=== PATIENT | female | born 1980 | race Caucasian/White ===

== ENCOUNTER 2020-10-13 17:17 | Emergency (ER) | payer BC ==
[~2020-10-13] VITALS: Ht 160 cm; Wt 52.2 kg
[2020-10-13] MEDS: IV NORMAL SALINE 1000 ML BAG IV ONE (17:41)
[2020-10-13] MEDS ORDERED: TDAP DIPH,PERTUSS,TET VAC/PF 0.5 ML DISP.SYRIN IM ONE (17:41)
[2020-10-13] MEDS: HYDROMORPHONE 1 MG/1 ML DISP.SYRIN IV ONE ×2 (17:43→19:56)
[2020-10-13] MEDS ORDERED: VANCOMYCIN IV 200 ML ONE (17:45)
[2020-10-13] MEDS: ONDANSETRON 4 MG/2 ML VIAL IV ONE (17:45)
[2020-10-13] MEDS ORDERED: HYDROMORPHONE 1 MG/1 ML DISP.SYRIN ONE ×2 (17:45→19:52)
[2020-10-13] MEDS ORDERED: ONDANSETRON 4 MG/2 ML VIAL ONE (17:45)
[2020-10-13] MEDS: TDAP DIPH,PERTUSS,TET VAC/PF 0.5 ML DISP.SYRIN IM ONE (17:49)
[2020-10-13] MEDS: VANCOMYCIN IV 1,000 MG in IV DEXTROSE 5% 250 ML IV ONE (17:55)
[2020-10-13] MEDS: KETOROLAC TROMETHAMINE 30 MG INJ IVP ONE (20:04)
[2020-10-13] MEDS ORDERED: KETOROLAC TROMETHAMINE 30 MG INJ ONE (20:06)
--- NOTE | 2020-10-13 20:10 | NUR ---
Note tazone in EDM - 10/13/20 at 2020 by RICH Patient discharged to home in stable condition. Written and verbal after care instructions given. Patient verbalizes understanding of instructions. Stressed follow up or return to ER for worsening s/s. Pt. instructed to follow up with Dr. Nj in AM. Pt. stable, vss. All belongings taken with pt.
--- NOTE | 2020-10-13 20:21 | NUR ---
Patient discharged to home in stable condition. Written and verbal after care instructions given. Patient verbalizes understanding of instructions. Stressed follow up or return to ER for worsening s/s. Pt. instructed to follow up with Dr. Nj in AM. Pt. stable, vss. All belongings taken with pt. Pt. instructed not to drive. Pt. is being driven home by boyfriend.
[2020-10-13 20:30] VITALS: BP 123/78
== END 2020-10-13 20:33 | disposition home or self-care (01) ==
LOC: ER 17:19
DX: L03.032 Cellulitis of left toe (principal); Z88.0 Allergy status to penicillin
CPT/HCPCS: 73660; 90471; 90715; 96365; 96375; 96376; 99284; J1170 ×2; J1885; J2405; J3370; A4663; J7030

== ENCOUNTER 2020-10-14 09:48 | Emergency (ER) | payer BC ==
[~2020-10-14] VITALS: Ht 160 cm; Wt 54.4 kg
[2020-10-14] MEDS ORDERED: VANCOMYCIN IV 200 ML ONE (10:13)
[2020-10-14] MEDS: IV NORMAL SALINE 1000 ML BAG IV ONE (10:31)
[2020-10-14] MEDS: VANCOMYCIN IV 1,000 MG in IV DEXTROSE 5% 250 ML IV ONE (10:32)
[2020-10-14] MEDS: ONDANSETRON 4 MG/2 ML VIAL IV ONE (10:32)
[2020-10-14] MEDS ORDERED: HYDROMORPHONE 1 MG/1 ML DISP.SYRIN ONE ×2 (10:33→11:18)
[2020-10-14] MEDS: HYDROMORPHONE 1 MG/1 ML DISP.SYRIN IV ONE ×2 (10:33→11:15)
[2020-10-14] MEDS ORDERED: ONDANSETRON 4 MG/2 ML VIAL ONE (10:33)
[2020-10-15] MEDS ORDERED: SULF1TAB47 PO (12:35)
== END 2020-10-14 12:35 | disposition home or self-care (01) ==
LOC: ER 09:48
DX: L03.032 Cellulitis of left toe (principal); Z88.0 Allergy status to penicillin
CPT/HCPCS: 96365; 96375; 96376; 99284; J1170 ×2; J2405; J3370; A4663

== ENCOUNTER 2020-10-15 01:26 | Emergency (ER) | payer BC ==
[~2020-10-15] VITALS: Ht 160 cm; Wt 54.4 kg
--- NOTE | 2020-10-15 02:00 | NUR ---
Dr. Russ at bedside for MSE.
[2020-10-15] MEDS ORDERED: CEFTRIAXONE 1 G in IV DEXTROSE 5% 50 ML IV ONE (02:15)
[2020-10-15] MEDS ORDERED: CLINDAMYCIN PHOSPHATE IV 600 MG in IV DEXTROSE 5% 100 ML IV ONE (02:15)
[2020-10-15] MEDS ORDERED: CEFTRIAXONE /D5W 50ML IVPB **ER PYXIS IV ONE (02:15)
[2020-10-15] MEDS ORDERED: VANCOMYCIN IV 1,000 MG in IV DEXTROSE 5% 250 ML IV ONE (02:15)
[2020-10-15 02:25] LABS: BASOPHILS # (AUTO) 0.1 K/uL (0.0-8.0); BASOPHILS % (AUTO) 0.9 % (0.0-2.0); EOSINOPHILS # (AUTO) 0.2 K/uL (0.0-0.7); EOSINOPHILS % (AUTO) 2.2 % (0.0-7.0); HEMATOCRIT 38.7 % (31.2-41.9); HEMOGLOBIN 13.1 g/dL (10.9-14.3); LYMPHOCYTES # (AUTO) 3.5 K/uL (20.0-40.0); LYMPHOCYTES % (AUTO) 40.4 % (20.5-51.5); MEAN CORPUSCULAR HEMOGLOBIN 33.9 uug (24.7-32.8); MEAN CORPUSCULAR HGB CONC 34 g/dL (32.3-35.6); MEAN CORPUSCULAR VOLUME 100.4 fL (75.5-95.3); MONOCYTES # (AUTO) 0.5 K/uL (2.0-10.0); NEUTROPHILS # (AUTO) 4.4 K/uL (1.8-8.9); NEUTROPHILS % (AUTO) 50.5 % (38.5-71.5); PLATELET COUNT (AUTO) 297 K/uL (179-408); RED BLOOD CELL COUNT(AUTO) 3.86 MIL/uL (3.63-4.92); WHITE BLOOD COUNT (AUTO) 8.6 K/uL (3.8-11.8)
[2020-10-15 02:28] LABS: CREATININE 1.2 mg/dL (0.6-1.3); POTASSIUM 3.7 mmol/L (3.5-5.1)
[2020-10-15 02:34] LABS: BILIRUBIN,DIRECT 0.1 mg/dL (0.0-0.2); BILIRUBIN,TOTAL 0.2 mg/dL (0.2-1.0)
[2020-10-15] MEDS ORDERED: CLINDAMYCIN PHOSPHATE 600 MG/4 ML VIAL ONE (02:43)
[2020-10-15] MEDS ORDERED: VANCOMYCIN IV 200 ML ONE (03:12)
--- NOTE | 2020-10-15 05:28 | NUR ---
Patient discharged to home in stable condition. Written and verbal after care instructions given. Patient verbalizes understanding of instructions. Stressed follow up or return to ER for worsening s/s. Patient to return in 24 hours for antibiotics or sooner if worsening symptoms. Patient verbalized understanding.
[2020-10-15 05:32] VITALS: BP 99/69
[2020-10-15] MEDS ORDERED: SULF1TAB47 PO (12:35)
== END 2020-10-15 05:32 | disposition home or self-care (01) ==
LOC: ER 01:30
DX: L03.032 Cellulitis of left toe (principal); R23.8 Other skin changes; T63.511D Toxic effect of contact with stingray, accidental (unintentional), subsequent encounter; Z88.0 Allergy status to penicillin
CPT/HCPCS: 36415; 73660; 80048; 80076; 83605; 84484; 84702; 85025; 87040 ×2; 96365; 96367; 96368; 99284; J0696; J3370; J3490; J7060; 70030-TC; A4663; J7030

== ENCOUNTER 2020-10-15 12:24 | Emergency (ER) | payer BC ==
[~2020-10-15] VITALS: Ht 160 cm; Wt 54.4 kg
[2020-10-15] MEDS ORDERED: IV NORMAL SALINE 1000 ML BAG IV ONE (12:30)
[2020-10-15] MEDS ORDERED: VANCOMYCIN IV 1,000 MG in IV DEXTROSE 5% 250 ML IV ONE (12:30)
[2020-10-15] MEDS ORDERED: FENTANYL CITRATE 100 MCG/2 ML AMPUL IV ONE ×3 (12:30→13:30)
--- NOTE | 2020-10-15 12:30 | NUR ---
at bedside for assessment
[2020-10-15] MEDS ORDERED: SULF1TAB47 PO (12:35)
[2020-10-15] MEDS ORDERED: FENTANYL CITRATE 100 MCG/2 ML AMPUL ONE ×3 (12:45→13:35)
[2020-10-15] MEDS ORDERED: VANCOMYCIN IV 200 ML ONE (12:46)
[2020-10-15] MEDS ORDERED: KETOROLAC TROMETHAMINE 30 MG INJ IVP ONE (13:30)
[2020-10-15] MEDS ORDERED: KETOROLAC TROMETHAMINE 30 MG INJ ONE (13:35)
[2020-10-15] MEDS ORDERED: HYDROMORPHONE 1 MG/1 ML DISP.SYRIN IV ONE (14:00)
[2020-10-15] MEDS ORDERED: ONDANSETRON 4 MG/2 ML VIAL IV ONE (14:00)
[2020-10-15] MEDS ORDERED: ONDANSETRON 4 MG/2 ML VIAL ONE (14:02)
[2020-10-15] MEDS ORDERED: HYDROMORPHONE 2 MG/1 ML DISP.SYRIN ONE (14:02)
[2020-10-15 15:00] VITALS: BP 117/84
--- NOTE | 2020-10-15 15:00 | NUR ---
IV removed. Catheter intact and site benign. Pressure and 4x4 gauze applied to site. No bleeding noted.
--- NOTE | 2020-10-15 15:00 | NUR ---
Patient discharged to home in stable condition. Written and verbal after care instructions given. Patient verbalizes understanding of instructions. Stressed follow up or return to ER for worsening s/s.
== END 2020-10-15 15:01 | disposition home or self-care (01) ==
LOC: ER 12:24
DX: L03.032 Cellulitis of left toe (principal); Z88.0 Allergy status to penicillin
CPT/HCPCS: 96365; 96375; 96376; 99284; J1170; J1885; J2405; J3010 ×3; J3370; J7030